=== PATIENT | male | born 1945 | race Caucasian/White ===

== ENCOUNTER 2018-08-04 11:05 | Inpatient (IN) | payer OTHER, MEDICARE ==
[~2018-08-04] VITALS: Ht 182.9 cm; Wt 98.9 kg
[2018-08-04] MEDS ORDERED: LIPITOR40 MG PO (11:40)
[2018-08-04] MEDS ORDERED: NORVASC5 M1 PO (11:40)
[2018-08-04] MEDS ORDERED: DOXYCYCLINE 10100 MG PO (11:41)
[2018-08-04] MEDS ORDERED: LOPRESSOR25 PO (11:42)
[2018-08-04] MEDS ORDERED: PROBIOTIC1 EAC1 PO (11:42)
[2018-08-04] MEDS ORDERED: MUPIROCIN1 GM NASAL (11:43)
[2018-08-04] MEDS ORDERED: TYLENOL325 M1 PO (11:43)
[2018-08-04] MEDS ORDERED: ASPIR-LOW81 MG PO (11:44)
[2018-08-04] MEDS ORDERED: ALPHA LIPOIC A300 MG PO (11:44)
[2018-08-04] MEDS ORDERED: HYDROCODON-ACE1 EAC7 PO (11:45)
[2018-08-04] MEDS ORDERED: FISH OIL 1,001000 M2 PO (11:46)
[2018-08-04] MEDS ORDERED: COQ1050 MG PO (11:47)
[2018-08-04 11:55] LABS: ABSOLUTE NEUTROPHILS 3.8 thou/uL (1.4-8.2); BASOPHILS 0.9 % (0.0-2.0); EOSINOPHILS 1.9 % (0.0-3.0); HEMOGLOBIN 14.8 gm/dL (14.0-18.0); LYMPHOCYTES 23.6 % (24.0-44.0); MCH 32.3 pg (26.0-34.0); MCHC 34.4 g/dL (28.0-37.0); MCV 93.7 fL (80.0-100.0); MONOCYTES 11.2 % (1.0-8.0); PLATELET COUNT 175 thou/uL (150-400); POLYS 62.4 % (36.0-66.0); RBC 4.59 mil/uL (4.50-6.00); RDW 12.3 % (10.5-14.5); WBC 6.1 thou/uL (4.0-11.0)
[2018-08-04 12:03] LABS: APTT 28.3 Seconds (24.5-32.8); PROTIME 10.4 Seconds (9.3-11.4)
[2018-08-04 12:09] LABS: ALBUMIN 3.8 g/dL (3.4-5.0); CREATININE 1.4 mg/dL (0.7-1.3); POTASSIUM 4.7 mmol/L (3.5-5.1); TOTAL BILIRUBIN 0.9 mg/dL (<0.1-1.0); TOTAL PROTEIN 7.1 g/dL (6.4-8.2)
[2018-08-04 13:44] LABS: URINE BILIRUBIN NEGATIVE (Negative); URINE BLOOD NEGATIVE (Negative); URINE CLARITY CLEAR; URINE COLOR YELLOW; URINE GLUCOSE-RANDOM* NEGATIVE (Negative); URINE KETONES 1+ (Negative); URINE LEUKOCYTES-REFLEX NEGATIVE (Negative); URINE NITRITE-REFLEX NEGATIVE (Negative); URINE PROTEIN (DIPSTICK) NEGATIVE (Negative); URINE SPECIFIC GRAVITY 1.025 (1.005-1.035); URINE UROBILINOGEN 0.2 E.U./dl (0.2-1.0)
[2018-08-05 08:06] LABS: GLYCOHEMOGLOBIN (HGB A1C) 5.4 % (4.8-5.6)
[2018-08-06] VITALS (22 sets, daily range): BP systolic 100–143; BP diastolic 44–55
[2018-08-06 11:39] LABS: HEMATOCRIT 29.6 % (42.0-52.0); MCH 32.7 pg (26.0-34.0); MCHC 35.1 g/dL (28.0-37.0); MCV 93.1 fL (80.0-100.0); RBC 3.18 mil/uL (4.50-6.00); RDW 11.9 % (10.5-14.5); WBC 10.5 thou/uL (4.0-11.0)
[2018-08-06 11:41] LABS: HEMOGLOBIN 10.4 gm/dL (14.0-18.0)
[2018-08-06 11:59] LABS: APTT 28.9 Seconds (24.5-32.8); FIBRINOGEN 199.9 mg/dL (210-360); INR 1.4
[2018-08-06 12:01] LABS: PROTIME 15.1 Seconds (9.3-11.4)
[2018-08-06 12:14] LABS: POC BE 4 mmol/L (-2.0 to +3.0); POC CA IONIZED 4.5 mg/dL (4.5-5.3); POC GLUCOSE 109 mg/dL (70-99); POC HCO3 28.2 mmol/L (22.0-26.0); POC HEMOGLOBIN 12.6 g/dL (14.0-18.0); POC POTASSIUM 4.7 mmol/L (3.5-5.1); POC SODIUM 139 mmol/L (136-145); POC pCO2 44.4 mmHg (35.0-45.0)
[2018-08-06 12:14] LABS: POC BE 3 mmol/L (-2.0 to +3.0); POC CA IONIZED 4.4 mg/dL (4.5-5.3); POC GLUCOSE 119 mg/dL (70-99); POC HCO3 27.8 mmol/L (22.0-26.0); POC HEMOGLOBIN 12.2 g/dL (14.0-18.0); POC POTASSIUM 5.1 mmol/L (3.5-5.1); POC SODIUM 138 mmol/L (136-145); POC pH 7.399 (7.360-7.450)
[2018-08-06 12:14] LABS: POC BE 4 mmol/L (-2.0 to +3.0); POC CA IONIZED 4.1 mg/dL (4.5-5.3); POC GLUCOSE 138 mg/dL (70-99); POC HCO3 28.9 mmol/L (22.0-26.0); POC HEMOGLOBIN 9.9 g/dL (14.0-18.0); POC POTASSIUM 5.1 mmol/L (3.5-5.1); POC SODIUM 137 mmol/L (136-145); POC pCO2 47.9 mmHg (35.0-45.0); POC pH 7.388 (7.360-7.450)
[2018-08-06 12:14] LABS: POC BE 5 mmol/L (-2.0 to +3.0); POC CA IONIZED 4.5 mg/dL (4.5-5.3); POC GLUCOSE 134 mg/dL (70-99); POC HCO3 28.9 mmol/L (22.0-26.0); POC HEMOGLOBIN 9.5 g/dL (14.0-18.0); POC POTASSIUM 4.5 mmol/L (3.5-5.1); POC SODIUM 138 mmol/L (136-145); POC pCO2 41.5 mmHg (35.0-45.0); POC pH 7.451 (7.360-7.450)
[2018-08-06 12:14] LABS: POC BE 5 mmol/L (-2.0 to +3.0); POC GLUCOSE 125 mg/dL (70-99); POC HEMOGLOBIN 9.5 g/dL (14.0-18.0); POC POTASSIUM 5.2 mmol/L (3.5-5.1); POC SODIUM 138 mmol/L (136-145); POC pCO2 35.2 mmHg (35.0-45.0); POC pH 7.509 (7.360-7.450)
[2018-08-06 12:14] LABS: POC BE 5 mmol/L (-2.0 to +3.0); POC CA IONIZED 3.8 mg/dL (4.5-5.3); POC GLUCOSE 114 mg/dL (70-99); POC HCO3 27.7 mmol/L (22.0-26.0); POC HEMOGLOBIN 10.2 g/dL (14.0-18.0); POC POTASSIUM 5.6 mmol/L (3.5-5.1); POC SODIUM 137 mmol/L (136-145); POC pCO2 33.9 mmHg (35.0-45.0)
[2018-08-06 12:14] LABS: POC BE 2 mmol/L (-2.0 to +3.0); POC CA IONIZED 4.3 mg/dL (4.5-5.3); POC GLUCOSE 131 mg/dL (70-99); POC HCO3 26.5 mmol/L (22.0-26.0); POC HEMOGLOBIN 10.9 g/dL (14.0-18.0); POC POTASSIUM 4.1 mmol/L (3.5-5.1); POC SODIUM 139 mmol/L (136-145); POC pCO2 39.5 mmHg (35.0-45.0); POC pH 7.434 (7.360-7.450)
[2018-08-06 12:14] LABS: POC BE 0 mmol/L (-2.0 to +3.0); POC GLUCOSE 113 mg/dL (70-99); POC HCO3 23.7 mmol/L (22.0-26.0); POC HEMOGLOBIN 10.2 g/dL (14.0-18.0); POC POTASSIUM 5.5 mmol/L (3.5-5.1); POC SODIUM 138 mmol/L (136-145); POC pCO2 32.7 mmHg (35.0-45.0); POC pH 7.468 (7.360-7.450)
[2018-08-06 13:06] LABS: BE(vivo) -3.7 mmol/L (-2 to +3); HCO3 21.5 mmol/L (22.0-26.0); PCO2 39.6 mmHg (35.0-45.0); PO2 217.1 mmHg (80.0-100.0); pH 7.353 (7.360-7.450); sO2 99.4 % (92.0-98.0)
[2018-08-06 13:08] LABS: HEMOGLOBIN 12.2 gm/dL (14.0-18.0); MCH 32.2 pg (26.0-34.0); MCHC 34.7 g/dL (28.0-37.0); MCV 92.6 fL (80.0-100.0); RBC 3.78 mil/uL (4.50-6.00); RDW 12.1 % (10.5-14.5); WBC 17.1 thou/uL (4.0-11.0)
[2018-08-06 13:17] LABS: CALCIUM 7.6 mg/dL (8.5-10.1); CREATININE 1.2 mg/dL (0.7-1.3); MAGNESIUM 2.2 mg/dL (1.8-2.4)
[2018-08-06 13:21] LABS: APTT 33.6 Seconds (24.5-32.8); INR 1.1
--- NOTE | 2018-08-06 15:35 | NUR ---
PT ARRIVED FROM OR AT 1240. PT SEDATED ON PROPOFOL PER VENT MANAGMENT. HEMODYNAMICALLY STABLE WITH PERIODS OF HTN, OFF/ON CARDENE GTT FOR BP MANAGMENT. SEDATION TITRATED OFF AT 1330, PT TOLERATING WELL. AT 1500 PT ABLET TO OPEN EYES TO VERBAL STIMULI AND FOLLOW COMMANDS INTERMITTENTLY. CPAP TRIAL AT 1520 TOLERATING WELL. PT IS STILL VERY DROWSY DESPITE SEDATION OFF. WILL CONTINUE TO MONITOR.
[2018-08-06 16:09] LABS: BE(vivo) -2.8 mmol/L (-2 to +3); HCO3 23.1 mmol/L (22.0-26.0); PCO2 44.2 mmHg (35.0-45.0); PO2 125.8 mmHg (80.0-100.0); pH 7.336 (7.360-7.450); sO2 98.3 % (92.0-98.0)
[2018-08-06 20:28] LABS: BE(vivo) -3.8 mmol/L (-2 to +3); HCO3 21.3 mmol/L (22.0-26.0); PCO2 38.9 mmHg (35.0-45.0); PO2 124.5 mmHg (80.0-100.0); pH 7.357 (7.360-7.450); sO2 98.4 % (92.0-98.0)
[2018-08-06 21:25] LABS: BE(vivo) -5.4 mmol/L (-2 to +3); HCO3 20.4 mmol/L (22.0-26.0); PCO2 40.8 mmHg (35.0-45.0); sO2 95.7 % (92.0-98.0)
[2018-08-06 21:27] LABS: pH 7.317 (7.360-7.450)
[2018-08-07] VITALS (15 sets, daily range): BP systolic 121–151; BP diastolic 41–57
[2018-08-07 06:12] LABS: HEMATOCRIT 36.2 % (42.0-52.0); HEMOGLOBIN 12.3 gm/dL (14.0-18.0); MCH 31.8 pg (26.0-34.0); MCHC 34.1 g/dL (28.0-37.0); MCV 93.5 fL (80.0-100.0); RBC 3.88 mil/uL (4.50-6.00); RDW 12.4 % (10.5-14.5); WBC 14.3 thou/uL (4.0-11.0)
--- NOTE | 2018-08-07 06:14 | NUR ---
Pt progressing well with stable VS. Remains on low dose Cardene gtt for BP control and HR stable. SpO2 adequate on current FiO2. PRN hydrocodones and fentanyl given for c/o chest "soreness" with desired effects achieved. Taking in PO ice chips with no c/o nausea. Chest tube drainage minimal for shift and urine output remains adequate. Am lab results pending, continue with POC.
[2018-08-07 06:26] LABS: CALCIUM 8.2 mg/dL (8.5-10.1); CREATININE 1.6 mg/dL (0.7-1.3); MAGNESIUM 2.6 mg/dL (1.8-2.4); POTASSIUM 4.4 mmol/L (3.5-5.1)
--- NOTE | 2018-08-07 19:30 | NUR ---
PT PROGRESSING. ALERT, ORIENTED, HYDROCODONE ADMINISTERED FOR PAIN CONTROL FOLLOWED BY TOLERABLE DISCOMFORT LEVEL, UP IN CHAIR X 2 & WELL TOLERATED. SR, CARDENE TITRATED TO KEEP SBP LEVEL LESS THAN 140, THEN LEVEL INCREASED TO LESS THAN 150, NORVASC PO GIVEN TO ASSIST IN DECREASING CARDENE. SWAN DC'D, INTRODUCER INTACT, MCT/PCT INTACT, NOTED REDNESS/SLIGHT BRUISING L INNER THIGH INCISION, R LOWER LEG INCISION- BOTH ARE DRY/INTACT. 2L/NC, WEAK NONPRODUCTIVE COUGH, TOLERATING LUNCH/DINNER, GUADARRAMA WITH ADEQUATE URINE OUTPUT. PRESENT, PROVIDING SUPPORT. SEE ASSESSMENT FOR FURTHER DETAILS.
[2018-08-08] VITALS (7 sets, daily range): BP systolic 117–144; BP diastolic 53–60
--- NOTE | 2018-08-08 03:13 | NUR ---
SHIFT NOTE PT IS ALERT AND ORRIENTED. VSS. PT TURNED Q2H AND PRN. PT CARDIENE GTT TITRATED ORDERED. PT HAD SOME COMPLAINTS OF PAIN AND MEDS WERE GIVEN ORDERED. PT HAD NO S/SX OF SOA OR N/V. TO GUADARRAMA TO DD WITH ADIQUATE OUTPUT. PT PT INSTRUCTED TO USE IS WHEN AWAKE AND TO SPLINT CHEST WHEN MOVING AROUND. PT BG CHECKED AND TREATED ORDERED. PT WILL CONTINUE TO BE MONITORED TILL THE SHIFT.
[2018-08-08 03:47] LABS: BE(vivo) 0.9 mmol/L (-2 to +3); HCO3 26.3 mmol/L (22.0-26.0); PCO2 44.9 mmHg (35.0-45.0); pH 7.385 (7.360-7.450); sO2 89.7 % (92.0-98.0)
[2018-08-08 06:06] LABS: HEMATOCRIT 32.6 % (42.0-52.0); HEMOGLOBIN 11.2 gm/dL (14.0-18.0); MCH 32.3 pg (26.0-34.0); MCHC 34.3 g/dL (28.0-37.0); MCV 94.2 fL (80.0-100.0); RBC 3.46 mil/uL (4.50-6.00); RDW 12.3 % (10.5-14.5); WBC 16.6 thou/uL (4.0-11.0)
[2018-08-08 06:14] LABS: CREATININE 1.3 mg/dL (0.7-1.3); POTASSIUM 4.1 mmol/L (3.5-5.1)
--- NOTE | 2018-08-08 09:25 | NUR ---
Nutrition: Consult received S/P CABG. RD will followup when out of ICU to determine education needs
[2018-08-08 16:09] LABS: GLYCOHEMOGLOBIN (HGB A1C) 5.5 % (4.8-5.6)
--- NOTE | 2018-08-08 19:28 | NUR ---
PATIENT REMAINS A&O X 4, PLEASANT AND COOPERATIVE [facility] CARES. C/O PAIN MULTIPLE TIMES, PAIN MEDICATIONS DO KJHELP. PATIENT UP TO CHAIR MULTIPLE TIMES THIS SHIFT. PATIENT C/O SHARP PAIN IN HIS LEFT BACK. MEDIASTINAL CHEST TUBES REMOVED TODAY ALONG WITH A-LINE, INTRODUCER, AND GUADARRAMA. PATIENT TOLERATED IT WELL. STILL HAS SIGNIFICANT AMOUT OF OUTPUT FROM THE PLEURAL TUBE. NO FURTHER CONCERNS AT THIS TIME. WILL CONTINUE TO MONITOR AND CARE PER PLAN OF CARE.
--- NOTE | 2018-08-08 23:43 | NUR ---
ASSUMED PT CARE AROUND 1900. A&OX4, FORGETFUL AT TIMES. OCCASSIONALLY TRIES TO GET OUT OF BED OR CHAIR WITHOUT CALLING FOR HELP. FALL PRECAUTIONS IN PLACE. BED/CHAIR ALARM ON. DENIES ANY CHEST PAIN. VSS. AFEBRILE. VISITED AT BEDSIDE. PT REQUESTED TO SLEEP IN CHAIR DURING THE NIGHT. LEFT PLEURAL CHEST TUBE TO -20 SUCTION. ALL DRESSINGS C/D/I. PT DENIED URGE TO VOID. BLADDER SCANNED 200ML. REPORT CALLED TO CCU RN. NOTIFIED OF PT TRANSFER TO CCU BED. PT TRANSFERED TO CCU ROOM 202 AROUND 2330.
[2018-08-09 00:15] VITALS: BP 141/65
[2018-08-09 03:35] VITALS: BP 124/65
--- NOTE | 2018-08-09 04:55 | NUR ---
ASSESSMENT DOCUMENTED.PT BEEN RESTING IN NO ACUTE DISTRESS.TRANSFER FROM ICU VIA BED.S/P CABG POST OPE DAY 3.PACER WIRES CAPPED.CHEST TUBE TO LEFT TO SUCTION -20CM.STERNAL INCISION DRESSING CDI,LEFT LEG HARVEST SITE COVERED WITH DRESSING,CDI.PT WAS ABLE TO VOID YELLOW URINE.AMBULATED TO BR WITH ASSIST X1.PT DENIES PAIN.ON O2 AT 2LITERS PNC.BREATHING TX PER RT.SINUS RHYTHM ON MONITOR.VSS.PT/OT ON BOARD.POC IS TO CONT WITH TX.
[2018-08-09 07:25] VITALS: BP 132/61
--- NOTE | 2018-08-09 09:03 | EKG ---
[place] [address] [facility] 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 VARGAS : 1945 Requested By: Moise Bueno Order Number: [id number] MD: Gustavo Pompa Measurements Intervals [place] Rate: 72 P: 33 [place]: 164 QRS: 2 QRSD: 102 T: 61 QT: 390 QTc: 427 Interpretive Statements Sinus rhythm RSR' in V1 or V2, probably normal variant No previous ECG available for comparison Electronically Signed On 08-09-2018 9:02:45 CDT by Gustavo Pompa [email or web address] ��������������������������������������������� <ELECTRONICALLY SIGNED> ���������������������������������������� By: Gustavo Pompa MD, [facility] ��������������������������������������������� 08/09/18901 14 14 Gsutavo Pompa MD, [facility] /EPI
--- NOTE | 2018-08-09 09:09 | EKG ---
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[employer] : 1945 Requested By: Moise Bueno Order Number: [id number] MD: Gustavo Pompa Measurements Intervals [place] Rate: 81 P: 28 [place]: 144 QRS: -7 QRSD: 96 T: 54 QT: 353 QTc: 410 Interpretive Statements Sinus rhythm RSR' in V1 or V2, probably normal variant Inferior infarct, age indeterminant No previous ECG available for comparison Electronically Signed On 08-09-2018 9:09:23 CDT by Gustavo Pompa [email or web address] ��������������������������������������������� <ELECTRONICALLY SIGNED> ���������������������������������������� By: Gustavo Pompa MD, [facility] ��������������������������������������������� 08/09/18 0909 112 112 Gustavo Pompa MD, [facility] /EPI
--- NOTE | 2018-08-09 10:24 | NUR ---
CM ASSESSMENT: CASE OPENED FOR DC PLANNING. CLINICAL INFO REVIEWED. PT IS POD #3 CABG. LIVES IN SPLIT LEVEL HOUSE WITH SPOUSE. [employer]CIAL [employer]ERS, INDEPENDENT WITH ADLS, NO DME OR PREVIOUS HH. WORKING WITH PT/OT TO DETERMINE ANY REHAB NEEDS AT DISCHARGE. CM AVAILABLE TO ASSIST WITH COORDINATION OF DC PLAN NEEDED.
[2018-08-09 11:20] VITALS: BP 133/65
--- NOTE | 2018-08-09 13:47 | NUR ---
Nutrition: S/P CABG. met with pt and for diet review. Both pt and are familiar with diet and follow at home. Try to eat more plant based. Few questions voiced. Pt with low appetite. Discussed menu ordering and obtained food preferences. Place as low risk.
--- NOTE | 2018-08-09 14:47 | NUR ---
ASSESSMENT DOCUMENTED. PT ALERT AND ORIENTED WITH FORGETFULNESS. VSS. REPORT HAVING PAIN WITH ACTIVITY AND DEEP BREATHING. DENIED THE NEED FOR PAIN MED. PACER WIRE AND CHEST TUBE PULLED OUT TODAY AT 10:00 AM. MIDSTERNAL INCISION WOODY DRESSING C/D/I. STERNAL PRECAUTION ENFORCED. ENCOURAGED TO USE IS. AT THE BEDSIDE. NO CONCERNS AT THIS TIME. WILL CONTINUE TO MONITOR.
[2018-08-09 15:30] VITALS: BP 126/52
[2018-08-09 19:30] VITALS: BP 132/67
--- NOTE | 2018-08-10 03:11 | NUR ---
ASSUMED CARE AT START OF SHIFT PT UP IN CHAIR CHEST INCISION CLEAN DRY AND INTACT WITH WOODY INTACT , DENIES PAIN C/O SORENESS REFUSE PAIN MEDICATION AT THIS TIME. PT ASSISTED TO BATHROOM TO HAVE BOWEL MOVEMNET PT JUST PASSED FLATUS , GAIT STAEDY WITH ONE ASSIST TOLERATED WELL. CARDIAC MONTIOR SHOWS NSR.RESTED WELL THROUGHOUT HOULRY ROUNDS WILL REPORT CHANGES OR ABNOMRAL FINDINGS.
[2018-08-10 04:19] VITALS: BP 130/61
[2018-08-10 04:31] LABS: HEMATOCRIT 31.9 % (42.0-52.0); HEMOGLOBIN 10.8 gm/dL (14.0-18.0); MCHC 33.7 g/dL (28.0-37.0); MCV 94.9 fL (80.0-100.0); RBC 3.36 mil/uL (4.50-6.00); RDW 12.3 % (10.5-14.5); WBC 11.2 thou/uL (4.0-11.0)
[2018-08-10 04:37] LABS: CALCIUM 8.6 mg/dL (8.5-10.1); CREATININE 1.1 mg/dL (0.7-1.3); POTASSIUM 4.7 mmol/L (3.5-5.1)
[2018-08-10 07:30] VITALS: BP 140/64
[2018-08-10 11:35] VITALS: BP 125/59
[2018-08-10 15:45] VITALS: BP 127/62
--- NOTE | 2018-08-10 17:36 | NUR ---
NURIA RAINEY RECOMMENDATION OF HOME WITH HH. WILL REVIEW HH [facility] IN [facility]. SP WITH AND PATIENT. PATIENT WANTS TO NAP CONCERNED OF ALL INTERUPTIONS TODAY HE FEELS EXHAUSTED. ALSO WANTING TO INQUIRE INTO DIFFERENT FOOD. UPDATED RN.
--- NOTE | 2018-08-10 18:13 | NUR ---
VSS REMAINS NSR. LUNGS DIMINISHED, RAISING IS 10 1000, NOW ON RA AT 91-94% UP IN [place] X 4 TODAY AMD MANY TRIPS TO BR, UP IN CHAIR MOST OF DAY. STEADY ON FEET WITH SBA. SHOWER TODAY, TOLERATED WELL , NEW PICCO DRESSING ON. APPETITE REMAINS POOR, FOOD ENCOURAGED. WILL CONTINUE TO MONITER AND CARE FOR PT PER PLAN OF CARE
[2018-08-10 20:00] VITALS: BP 133/58
--- NOTE | 2018-08-11 03:51 | NUR ---
PATIENTS CARES WERE ASSUMED AT SHIFT CHANGE. PATIENT WAS ASSESSED AND MEDS WERE PASSED. PATIENT HAS A VERY FLAT AFFECT. NON ENGAGING. PATIENT WAS COMFORTABLE WHEN PUT TO BED. DENIES PAIN. PATIENT HAS SLEPT THE MAJORITY OF THIS SHIFT. HOURLY ROUNDING WAS DONE. THE BED IS IN A LOW AND LOCKED POSITION.
[2018-08-11 04:07] VITALS: BP 132/65
[2018-08-11 07:34] VITALS: BP 148/69
--- NOTE | 2018-08-11 07:55 | EKG ---
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 : 1945 Requested By: Nathaniel Herrera Order Number: [id number] MD: Gustavo Pompa Measurements Intervals [place] Rate: 70 P: 10 [place]: 154 QRS: -11 QRSD: 94 T: 38 QT: 394 QTc: 426 Interpretive Statements Sinus rhythm RSR' in V1 or V2, probably normal variant Inferior infarct, old Compared to ECG 08/07/2018 11:21:34 No significant changes Electronically Signed On 08-11-2018 7:54:52 CDT by Gustavo Pompa [email or web address] ��������������������������������������������� <ELECTRONICALLY SIGNED> ���������������������������������������� By: Gustavo Pompa MD, [facility] ��������������������������������������������� 08/11/18 0754 0717 07 Gustavo Pompa MD, [facility] /EPI
[2018-08-11 13:54] VITALS: BP 132/65
--- NOTE | 2018-08-11 13:58 | NUR ---
BEING DISCHARGED TO HOME. INSTRUCTIONS GIVEN. PAIN MED SCRIPT AND INFO GIVEN.
--- NOTE | 2018-08-11 14:36 | NUR ---
patient to dc home. [facility] was accepting in network but no HH ordered. Patient has dc instructions. Updated no further needs
--- NOTE | 2018-08-11 17:02 | O ---
[facility] [place] [address] [place] [address] OPERATIVE REPORT Name: PAOLA VARGAS Room #: 202-P [facility] IN M.R.#: [id number] Admission: 08/06/18 ������������������ Attend Phys: Nathaniel Herrera MD Discharge: 08/11/18 ������������������ Date of : 43 Report #: [id number] THIS REPORT FOR: //name// CC: [facility] DATE OF SERVICE: 08/06/2018 PREOPERATIVE DIAGNOSIS: Coronary artery disease. POSTOPERATIVE DIAGNOSIS: Coronary artery disease. OPERATION: Coronary artery bypass x 2 including left internal mammary artery to left anterior descending artery, and saphenous vein to marginal. SURGEON: Nathaniel Herrera MD BUSINESS CONTINUITY ANALYST: KOBE Tanner. ANESTHESIA: General. INDICATIONS: The patient is a 73-year-old with exertional angina. Catheterization demonstrates high-grade LAD and marginal lesions. Left ventricular function is satisfactory. Right coronary is satisfactory. FINDINGS AND TECHNIQUE: After general anesthesia was established, saphenous vein was harvested and prepared for use as a conduit. Exposure was obtained through median sternotomy. Left internal mammary artery was harvested from chest wall. Pericardial well was made. Cannulation sutures were placed. Heparin was given. Aorta was cannulated. Right atrium was cannulated. Cardioplegia needle was positioned in the aortic root. Retrograde cardioplegic catheter was placed in the coronary sinus. Cardiopulmonary bypass was established. The aorta was cross clamped antegrade, then retrograde cardioplegia were given. Ice was poured into the pericardial well, the heart was stopped. During electromechanical arrest, the distal anastomoses were performed and end-to-side anastomosis was made between vein and the marginal artery. This was 1.8 mm intramyocardial vessel. Cold cardioplegia was given. Left internal mammary artery was sewn in end-to-side fashion to left anterior descending artery. This was a 1.5 mm vessel. Anastomosis was checked with the temperature technique. Cold cardioplegia was given. One proximal anastomosis was performed. When this was complete, warm retrograde cardioplegia was given, followed by warm continuous blood to the coronary sinus. When this infusion was complete, the crossclamp was removed, de-airing maneuvers were performed. [facility] [address] [place] [place] [address] OPERATIVE REPORT Name: PAOLA VARGAS Room #: 202-P [facility] IN .R.#: [id number] Admission: 08/06/18 ������������������ Attend Phys: Nathaniel Herrera MD Discharge: 08/11/18 ������������������ Date of : 43 Report #: [id number] anastomoses were inspected and found to be satisfactory. As the patient warmed, nice cardiac activity resumed, chest tubes and pacing wires were placed, a marker was placed around the proximal anastomoses. When the patient was warm, he was weaned from cardiopulmonary bypass. Venous cannula was removed. Protamine was given, the aortic cannula was removed. Flows were measured in the bypass grafts. When hemostasis was satisfactory, chest was irrigated with antibiotic solution and closed in the usual fashion. The patient was taken to the Intensive Care Unit in good condition, having tolerated the procedure well. All counts reported as correct. ��������������������������������������������� <ELECTRONICALLY SIGNED> ���������������������������������������� By: Nathaniel Herrera MD ��������������������������������������������� 08/11/18 1702 1347 1404 Nathaniel Herrera MD /nt
== END 2018-08-11 14:43 | disposition home or self-care (01) | DRG 235 ==
LOC: PRE 11:05 → 2N 08-06 05:32 → TBA 08-06 05:32 → PRE 08-06 11:12 → ICU 08-06 13:10 → PRE 08-06 13:22 → ICU 08-06 17:45 → 2N 08-08 23:37 → ENTRNSPT 08-11 14:37 → EDTRNSPTSTS 08-11 14:39 → 2N 08-11 14:43
PROVIDERS: Hospitalist; Physician Assistant; ADMIT Surgery Vascular Surgery
PROC: 06BQ4ZZ Excision of Left Saphenous Vein, Percutaneous Endoscopic Approach (ICD-10-PCS; principal; 2018-08-06)
PROC: 02100Z9 Bypass Coronary Artery, One Artery from Left Internal Mammary, Open Approach (ICD-10-PCS; principal; 2018-08-06)
PROC: 021009W Bypass Coronary Artery, One Artery from Aorta with Autologous Venous Tissue, Open Approach (ICD-10-PCS; principal; 2018-08-06)
PROC: 5A1221Z Performance of Cardiac Output, Continuous (ICD-10-PCS; principal; 2018-08-06)
DX: I25.10 Atherosclerotic heart disease of native coronary artery without angina pectoris (principal); I50.33 Acute on chronic diastolic (congestive) heart failure; I10 Essential (primary) hypertension; E78.5 Hyperlipidemia, unspecified; R73.9 Hyperglycemia, unspecified; K59.00 Constipation, unspecified; Z79.82 Long term (current) use of aspirin; Z79.899 Other long term (current) drug therapy; Z88.8 Allergy status to other drugs, medicaments and biological substances
CPT/HCPCS: 10078; 10081; 47000; 47001; 47002; 47297; 48888; 50010; 50249; 50409; 50456; 50498; 50668; 51301; 52131; 52259; 52314; 53327; 53358; 54118; 56455; 56524; 56525; 56526; 56527; 56528; 56531; 56534; 56668; 56760; 56898; 57093; 57116; 57167; 62110; 62950; 65003; 65020; 65047; 65090; 65135; 83006

== ENCOUNTER → 2018-08-25 | Outpatient (CLI) | payer OTHER, MEDICARE ==
[~2018-08-25] MED LIST: ALPHA LIPOIC A300 MG PO; ASPIR-LOW81 MG PO; COQ1050 MG PO; DOXYCYCLINE 10100 MG PO; FISH OIL 1,001000 M2 PO; HYDROCODON-ACE1 EAC7 PO; LIPITOR40 MG PO; LOPRESSOR25 PO; MUPIROCIN1 GM NASAL; NORVASC5 M1 PO; PROBIOTIC1 EAC1 PO; TYLENOL325 M1 PO
== END ==
LOC: ULTRA 10:54
DX: M79.89 Other specified soft tissue disorders (principal); M79.606 Pain in leg, unspecified